=== PATIENT | female | born 1970 | race Caucasian/White ===

== ENCOUNTER 2021-07-08 10:04 | Emergency (ER) | payer MEDICAID, SELFPAY ==
[2021-07-08 10:45] VITALS: BP 156/98; PULSE 103; RESP 14; TEMP 36.4; O2SAT 98
--- NOTE | 2021-07-08 10:48 | ECG_ITS ---
Measurements Intervals [place] Rate: 89 P: 66 MI: 146 QRS: 72 QRSD: 90 T: 38 QT: 357 QTc: 437 Interpretive Statements SINUS RHYTHM MINIMAL Q WAVES- INFERIOR LEADS BORDERLINE ECG Electronically Signed On 07-08-2021 11:28:41 MOLYBDENUM STEAMER OPERATOR by Maverick Mata D.O.
--- NOTE | 2021-07-08 11:26 | ED.GENADULT ---
HPI - General Adult General Chief complaint: Neuro Symptoms/Deficit Stated complaint: wants an xray of head. tingling Time Seen by Provider: 07/08/21 10:55 History of Present Illness HPI narrative: 50-year-old female presents the emergency department for evaluation of a shocking sensation that travels from the top of her scalp. Patient states approximately 3 days ago she felt a sore spot on the top of her scalp. Patient states since that time she has felt that there is a live current that passes from the top of her scalp down her arms. Patient denies any associated numbness or weakness. Patient denies any medication changes. Patient denies any falls or injuries. Related Data Allergies Allergy/AdvReac Type Severity Reaction Status Date / Time No Known Allergies Allergy Verified 07/08/21 10:49 Review of Systems Review of Systems: CONSTITUTIONAL: Denies fever, chills, or sweats. EYES: Denies visual changes, redness, or discharge. ENT: Denies rhinorrhea, congestion, sore throat, or otalgia. CARDIOVASCULAR: Denies chest pain, palpitations, or edema. RESPIRATORY: Denies cough or dyspnea. GASTROINTESTINAL: Denies abdominal pain, nausea, vomiting, or diarrhea. GENITOURINARY: Denies dysuria or hematuria. SKIN: Denies rash or itching. MUSCULOSKELETAL: Denies back pain, joint pain, or myalgia. NEUROLOGIC: Denies headache, numbness, or weakness. Patient does report feeling a live current traveling through her body PSYCHIATRIC: Denies anxiety or depression. [facility] Family History Family History (Updated 02/27/16 @ 23:19 by DOCTOR UNKNOWN) Grandparent Family history of malignant neoplasm of breast Father Family history of coronary artery disease Social History Social History Smoking status: Heavy tobacco smoker Second hand tobacco smoke exposure: No Alcohol intake: never Exam Narrative: APPEARANCE: Well appearing, no pain in distress, well-nourished. Head normocephalic atraumtaic. EYES: PERRLA/EOMI, conjunctivae very clear. NOSE: Normal no drainage EARS:TMS clear Virgie Lara, with good light reflex. THROAT: Pharynx clear, no exudate. NECK: Supple. No adenopathy, no masses. RESPIRATORY: Airway patent, respirations nonlabored. Clear to auscultation bilaterally, no rales, rhonchi, wheezing. CARDIOVASCULAR: Regular rate and rhythm without murmurs rubs or gallops. ABDOMINAL: Soft, nontender, nondistended, no hepatosplenomegally MUSCULOSKELETAl: Moves all extremities. Strenght/ROM intact, No edema, No calf tenderness. NEURO: Alert. Cranial nerves II through XII intact. Good gait. Good coordination. Patient has no tremor, normal sensation and normal reflexes. SKIN: Warm, dry. Normal Color. No acute abnormality of the scalp is noted. PSYCHIATRIC: Normal affect/mood, normal interaction with parents. Course Course Emergency Course: Patient presented to the emergency department requesting an x-ray of her head. Patient is neurovascularly intact with a negative FAST exam. No concern for acute stroke. No palpable abnormality of the scalp or skull is noted. I explained that I did not feel that imaging would be worth the risk of the radiation at this time. Informed her that I would start with labs and we would proceed from there. All questions and concerns were addressed at this time. Patient eloped from the emergency department prior to completing her medical work-up. Vital Signs Vital signs: Vital Signs Temperature 97.5 F L 07/08/21 10:45 Pulse Rate 103 H 07/08/21 10:45 Respiratory Rate 14 07/08/21 10:45 Blood Pressure 156/98 H 07/08/21 10:45 Pulse Oximetry 98 07/08/21 10:45 Temperature 97.5 F L 07/08/21 10:45 Pulse Rate 103 H 07/08/21 10:45 Respiratory Rate 14 07/08/21 10:45 Blood Pressure 156/98 H 07/08/21 10:45 Pulse Oximetry 98 07/08/21 10:45 Medical Decision Making Vital Signs Vital Signs: Vital Signs Temperature 97.5 F L 07/08/21 10:45 Pulse Rate 103 H 07/08
[2021-07-08 11:41] LABS: Basophils Absolute Auto 0.1 K/mm3 (0.0-0.1); Basophils Percent Auto 0.6 % (0.2-1.2); Eosinophils Percent Auto 0.3 % (0-4.4); Hematocrit 38.7 % (37.0-47.0); Hemoglobin 13.5 g/dL (12.0-15.0); Immature Granulocyte Absolute 0.03 K/mm3 (0.00-0.031); Immature Granulocyte Percent A 0.3 % (0-0.5); Lymphocytes Absolute Auto 2.71 K/mm3 (0.9-3.2); Mean Corpuscular HGB Conc 34.9 g/dl (32-36); Mean Corpuscular Hemoglobin 31.8 pg (26-34); Mean Corpuscular Volume 91.1 fl (80-100); Mean Platelet Volume 10.1 fl (7.4-10.4); Monocytes Absolute Auto 0.6 K/mm3 (0.1-0.6); Monocytes Percent Auto 5.5 % (2.6-8.5); Neutrophils Absolute Auto 6.6 K/mm3 (1.3-6.7); Neutrophils Percent Auto 66.3 % (45.5-73.1); Platelet Count Result 263 k/mm3 (150-375); Red Blood Count 4.25 M/mm3 (4.2-5.4); Red Cell Distribution Width 11.6 % (11.5-14.5)
[2021-07-08 11:51] LABS: Alanine Aminotransferase 28 U/L (4-35); Albumin Level 4.6 g/dL (3.5-5.1); Alkaline Phosphatase 62 U/L (38-126); Anion Gap 7 mmol/L (8-16); Aspartate Amino Transferase 27 U/L (14-36); Bilirubin,Total 0.4 mg/dL (0.2-1.3); Blood Urea Nitrogen 18 mg/dL (7-17); Calcium 9.5 mg/dL (8.4-10.2); Carbon Dioxide 26 mmol/L (22-30); Chloride 103 mmol/L (98-107); Estimated Glomerular Filt Rate > 60; Glucose 97 mg/dL (65-110); Potassium 3.6 mmol/L (3.4-5.0); Sodium 136 mmol/L (137-145)
[2021-07-08 11:53] LABS: INR 0.9; Prothrombin Time 11.8 Seconds (11.1-14.7)
[2021-07-08 11:54] LABS: Partial Thromboplastin Time 23.2 SECONDS (22.3-36.8)
[2021-07-08 12:22] LABS: Troponin I < 0.012 ng/mL (0.000-0.034)
== END 2021-07-09 02:29 | disposition left against medical advice (07) ==
PROVIDERS: Emergency Medicine; Emergency Provider Emergency Medicine; PCP Emergency Medicine
DX: L98.9 Disorder of the skin and subcutaneous tissue, unspecified (principal); R29.90 Unspecified symptoms and signs involving the nervous system; F17.200 Nicotine dependence, unspecified, uncomplicated
CPT/HCPCS: 36415; 80053; 83735; 84484; 85025; 85610; 85730; 93005; 99284

== ENCOUNTER 2021-08-22 07:43 | Emergency (ER) | payer MEDICAID, SELFPAY ==
[2021-08-22] VITALS (17 sets, daily range): BP systolic 148–152; BP diastolic 84–94; PULSE 78–103; RESP 14–31; O2SAT 94–99
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
--- NOTE | 2021-08-22 07:45 | ECG_ITS ---
Measurements Intervals [place] Rate: 89 P: 66 VA: 149 QRS: 66 QRSD: 88 T: 48 QT: 361 QTc: 441 Interpretive Statements SINUS RHYTHM POSSIBLE LEFT ATRIAL ENLARGEMENT MINIMAL Q WAVES- INFERIOR LEADS BASELINE ARTIFACT- I, II, AVR, V1 BORDERLINE ECG Electronically Signed On 08-22-2021 8:19:20 MACHINE ASSEMBLER SUPERVISOR by Maverick Mata D.O.
[2021-08-22 08:25] LABS: Basophils Percent Auto 0.4 % (0.2-1.2); Eosinophils Percent Auto 0.2 % (0-4.4); Hematocrit 40.6 % (37.0-47.0); Hemoglobin 13.8 g/dL (12.0-15.0); Immature Granulocyte Absolute 0.05 K/mm3 (0.00-0.031); Immature Granulocyte Percent A 0.5 % (0-0.5); Lymphocytes Absolute Auto 2.09 K/mm3 (0.9-3.2); Lymphocytes Percent Auto 19.5 % (18.3-44.2); Mean Corpuscular Volume 91.2 fl (80-100); Mean Platelet Volume 10.1 fl (7.4-10.4); Monocytes Absolute Auto 0.5 K/mm3 (0.1-0.6); Neutrophils Percent Auto 74.4 % (45.5-73.1); Platelet Count Result 291 k/mm3 (150-375); Red Blood Count 4.45 M/mm3 (4.2-5.4); Red Cell Distribution Width 12.5 % (11.5-14.5); White Blood Count 10.7 K/mm3 (4.5-10.0)
--- NOTE | 2021-08-22 08:28 | ED.SOB ---
HPI - SOB/Dyspnea General Chief Complaint: Shortness of Breath/Dyspnea Stated Complaint: SOB, abd pain Time Seen by Provider: 08/22/21 07:48 History of Present Illness HPI Narrative: Patient is a 50-year-old female who presents ER with epigastric pain. Reports last night she was sleeping and at 3 AM she woke up and she is having central chest pressure going up towards her neck. It then moved down and settled in her epigastrium also going towards her neck. Associate with some mild shortness of breath. No exertional chest discomfort. No fevers or chills or sweats. Denies nausea/vomiting/belching. Denies burning pain going up into the back of her throat. No history of acid reflux. No history of MD. Patient does report CVA in the past. Patient is found no aggravating or alleviating factors. Related Data Home Medications Medication Instructions Recorded Confirmed No Home Medications 08/22/21 08/22/21 Allergies Allergy/AdvReac Type Severity Reaction Status Date / Time No Known Allergies Allergy Verified 07/08/21 10:49 Review of Systems Review of Systems: All systems reviewed & are unremarkable except as noted in HPI and below Constitutional: Constitutional: Denies chills, Denies fever(s) and Denies weakness ENT: Denies nasal congestion and Denies sore throat Cardiovascular: Cardiovascular: Reports chest pain and Reports radiating jaw, neck or arm pain Respiratory: Respiratory: Denies chest congestion, Denies cough, Reports dyspnea and Denies wheezing Gastrointestinal: Gastrointestinal: Reports abdominal pain, Denies bloating, Denies diarrhea, Denies nausea and Denies vomiting Genitourinary: Genitourinary: Denies dysuria and Denies flank pain Neurologic: Denies focal weakness and Denies numbness [facility] Past Medical History Medical History (Updated 08/22/21 @ 18:40 by Zachary Russo MD) Subarachnoid hemorrhage Surgical History Surgical History (Updated 08/22/21 @ 08:32 by Zachary Russo MD) History of hysterectomy History of tonsillectomy Family History Family History (Updated 02/27/16 @ 23:19 by DOCTOR UNKNOWN) Grandparent Family history of malignant neoplasm of breast Father Family history of coronary artery disease Social History Social History Smoking status: Heavy tobacco smoker Second hand tobacco smoke exposure: No Alcohol intake: never Exam Narrative: GENERAL: Well-appearing, well-nourished, and in no acute distress. HEAD: Normocephalic, atraumatic. EYES: PERRL and EOMI. CHEST: Clear to auscultation. No respiratory distress. HEART: Regular rate and rhythm. Normal peripheral pulses. ABDOMEN: Soft, nontender, nondistended. EXTREMITIES: Normal range of motion. No edema. SKIN: Warm, dry, no rash. NEURO: Alert and oriented x3. PSYCH: Normal mood and affect. Course Course Emergency Course: Patient walked out of the ER before completing exam. Vital Signs Vital signs: Vital Signs Pulse Rate 87 08/22/21 07:42 Respiratory Rate 14 08/22/21 07:42 Pulse Oximetry 97 08/22/21 07:42 Pulse Rate 83 08/22/21 10:45 Respiratory Rate 19 08/22/21 10:45 Blood Pressure 152/94 H 08/22/21 08:37 Pulse Oximetry 97 08/22/21 10:30 MDM - SOB/Dyspnea Lab Data Result diagrams: 08/22/21 08:17 08/22/21 08:17 Labs: Lab Results 08/22/21 08/22/21 08/22/21 Range/Units 08:17 08:17 08:33 WBC 10.7 H (4.5-10.0) K/mm3 RBC 4.45 (4.2-5.4) M/mm3 Hgb 13.8 (12.0-15.0) g/dL Hct 40.6 (37.0-47.0) % MCV 91.2 (80-100) fl MCH 31.0 (26-34) pg MCHC 34.0 (32-36) g/dl RDW 12.5 (11.5-14.5) % Plt Count 291 (150-375) k/mm3 MPV 10.1 (7.4-10.4) fl Immature Gran % (Auto) 0.5 (0-0.5) % Neut % (Auto) 74.4 H (45.5-73.1) % Lymph % (Auto) 19.5 (18.3-44.2) % [place] % (Auto) 5.0 (2.6-8.5) % Eos % (Auto) 0.2 (0-4.4) % Baso % (Auto) 0.4 (0.2-1.2) % Lymph #
[2021-08-22 08:35] LABS: Alanine Aminotransferase 28 U/L (4-35); Albumin Level 4.2 g/dL (3.5-5.1); Alkaline Phosphatase 105 U/L (38-126); Anion Gap 8 mmol/L (8-16); Aspartate Amino Transferase 25 U/L (14-36); Bilirubin,Total 0.3 mg/dL (0.2-1.3); Blood Urea Nitrogen 9 mg/dL (7-17); Calcium 9.3 mg/dL (8.4-10.2); Carbon Dioxide 25 mmol/L (22-30); Chloride 109 mmol/L (98-107); Estimated CRCL calculation 111 ml/min; Estimated Glomerular Filt Rate > 60; Glucose 111 mg/dL (65-110); Lipase 204 U/L (23-300); Sodium 142 mmol/L (137-145)
[2021-08-22] MEDS: MORPHINE SULFATE (*CRX) 4 MG/ML INJ IV PUSH (08:39)
[2021-08-22 08:47] LABS: Troponin I < 0.012 ng/mL (0.000-0.034)
[2021-08-22 08:51] LABS: Add Urine Microscopic? YES; Appearance Urine Clear (Clear); Bilirubin Urine Negative (Negative); Blood Urine Negative (Negative); Color Urine Yellow (Yellow); Glucose Urine UA Negative (Negative); Ketones Urine Negative (Negative); Leukocyte Esterase Ur Negative LEU/UL (Negative); Mucus Urine Rare /lpf; Nitrate Urine Negative (Negative); Protein Urine Negative (Negative); RBC Urine 0-2 /hpf (0-2); Specific Grav Ur 1.016 (1.001-1.035); Squamous Epithelial Cell Urine Moderate /hpf (Few); Urobilinogen Urine Negative mg/dL (<2.0); WBC Urine 0-3 /hpf
--- NOTE | 2021-08-22 12:00 | PC.NURSE ---
RN into assess pt. pt. gown on bed, monitor removed, and pt. not in room. computer applications developer and ERP made aware.
--- NOTE | 2021-08-22 12:27 | PC.NURSE ---
contacted [place] [facility] in regards to pt. elopement. informed pt. has IV intact and left before being discharged. informed pt. resides at [facility] in [place]. states the can do a wellness check.
--- NOTE | 2021-08-22 12:29 | PC.NURSE ---
Attempted to call pt. at [phone]. no answer.
== END 2021-08-22 11:40 | disposition left against medical advice (07) ==
PROVIDERS: Emergency Provider Emergency Medicine; PCP Emergency Medicine
DX: R07.9 Chest pain, unspecified (principal); F17.200 Nicotine dependence, unspecified, uncomplicated; R94.31 Abnormal electrocardiogram [ECG] [EKG]
CPT/HCPCS: 36415; 71046; 80053; 81001; 83690; 84484; 85025; 93005; 96374; 99284; J2270

== ENCOUNTER 2022-12-15 12:50 | Outpatient (CLI) | payer BC, SELFPAY ==
--- NOTE | ~2022-12-15 | US_ITS ---
EXAMINATION: US pelvic complete w TV DATE: 12/15/2022 13:46 INDICATION: Ovarian cyst. Comparison:11/25/2014 TECHNIQUE: Multiple transabdominal and endovaginal sonographic images of the pelvis performed. FINDINGS: The uterus is surgically absent. The ovaries are not identified, possibly atrophic. There i s no free fluid in the pelvis. There are no abnormal masses seen on either side. IMPRESSION: 1. Unremarkable pelvic ultrasound. Reviewed, dictated and finalized at location B.
== END 2022-12-15 12:51 | disposition home or self-care (01) ==
LOC: ANHIMG 12:56
PROVIDERS: PCP Emergency Medicine; Visit Provider Emergency Medicine
DX: N83.209 Unspecified ovarian cyst, unspecified side (principal)
CPT/HCPCS: 76830; 76856

== ENCOUNTER 2025-01-20 10:52 | Emergency (ER) | payer BC, SELFPAY ==
[2025-01-20] VITALS (15 sets, daily range): BP systolic 122–149; BP diastolic 83–105; PULSE 64–74; RESP 12–21; TEMP 36.7; O2SAT 98–100
--- NOTE | ~2025-01-20 | CT_ITS ---
Non-contrast Head CT History: Confusion Technique: Axial non-contrast imaging of the brain was performed. Dose reduction technique was used on this scan by utilizing automated exposure control and iterative reconstruction technique. The dose -length product (DLP) was 605.33 mGy-cm. Findings: There is no evidence of intracranial hemorrhage, mass lesion, or acute infarct. Brain par enchyma appears normal. The ventricles and subarachnoid spaces are normal in size. The calvarium ap pears normal. The visualized paranasal sinuses and mastoid air cells are clear. Impression: No significant abnormality seen. Reviewed, dictated and finalized at location . Impression: No significant abnormality seen.
--- NOTE | ~2025-01-20 | XR_ITS ---
Portable chest x-ray Comparison: 08/22/2021 Clinical History: Chest pain Findings: Lungs are clear, without focal consolidation or pleural effusion. Cardiomediastinal silho uette is stable. Bones and soft tissues are unremarkable. Impression: Normal chest. Reviewed, dictated and finalized at [facility]. Impression: Normal chest.
--- NOTE | 2025-01-20 11:09 | ECG_ITS ---
Test Date: 2025-01-20 11:28:32 Measurements Intervals [place] Rate: 72 P: 53 VA: 150 QRS: 68 QRSD: 93 T: 38 QT: 399 QTc: 439 Interpretive Statements SINUS RHYTHM NORMAL ECG No previous ECG available for comparison Electronically Signed On 01-20-2025 12:35:15 CDT by Maverick Mata D.O.
--- NOTE | 2025-01-20 11:13 | ED.GENADULT ---
HPI - General Adult General Chief complaint: Unspecified Stated complaint: weight loss, exhaustion Time Seen by Provider: 01/20/25 10:58 History of Present Illness HPI narrative: This is a 54-year-old female presenting with exhaustion. Patient is tearful during the interview. Patient states that earlier this year her daughter from an overdose. Then she had to take care of mother was suffering after a long mccoy with cancer. She said that she in hospice and that it was a terrible . Since then Shandra has been unable to sleep, she feels exhausted, she is tearful throughout most of the day, she says that her hair is falling out, she has chest pain, she has difficulty breathing she has abdominal pain she has diarrhea. Patient is convinced that she is dying inside. She thinks that there is a physical issue with her organs. She denies suicidal ideation or homicidal ideation. She has not spoken to anyone about her grief. Related Data Home Medications ?Medication ?Instructions ?Recorded ?Confirmed ?Last Taken ?Type No Home Medications 08/22/21 08/22/21 Unknown History Allergies Allergy/AdvReac Type Severity Reaction Status Date / Time No Known Allergies Allergy Verified 07/08/21 10:49 [facility] Past Medical History Medical History (Updated 01/20/25 @ 13:18 by Stan Ernandez MD) Subarachnoid hemorrhage Surgical History Surgical History (Updated 08/22/21 @ 08:32 by Zachary Russo MD) History of tonsillectomy History of hysterectomy Family History Family History (Updated 02/27/16 @ 23:19 by DOCTOR UNKNOWN) Grandparent Family history of malignant neoplasm of breast Father Family history of coronary artery disease Social History Social History Smoking status: Heavy tobacco smoker Second hand tobacco smoke exposure: No Alcohol intake: never Exam Narrative: APPEARANCE: Patient is tearful and crying, she repeats herself repeatedly Head: atraumatic. EYES: EOMI, NOSE: Atraumatic NECK: Trachea midline RESPIRATORY: No increased rate of breathing clear to auscultation CARDIOVASCULAR: RRR, no peripheral edema ABDOMINAL: Non-distended nontender MUSCULOSKELETAl: No obvious deformities NEURO: Alert. Moving 4/4 extremities SKIN:: Warm, dry. Normal color PSYCHIATRIC: Tearful crying anxious appearing Course Vital Signs Vital signs: Vital Signs Temperature 98.1 F 01/20/25 11:02 Pulse Rate 74 01/20/25 11:02 Respiratory Rate 20 01/20/25 11:02 Blood Pressure 122/105 H 01/20/25 11:02 Pulse Oximetry 100 01/20/25 11:02 Oxygen Delivery Room Air 01/20/25 11:02 Temperature 98.1 F 01/20/25 11:02 Pulse Rate 74 01/20/25 11:02 Respiratory Rate 18 01/20/25 12:09 Blood Pressure 122/105 H 01/20/25 11:02 Pulse Oximetry 100 01/20/25 12:09 Oxygen Delivery Room Air 01/20/25 11:02 Medical Decision Making MDM Narrative Medical decision making narrative: -Course: 54-year-old female presenting weight loss and exhaustion. She has a bragg positive review of systems. All of her symptoms are likely due to a severe grief reaction from the significant stressors she has undergone due to losses in her family. Her workup was unremarkable. She is not suicidal or homicidal. Patient is already plugged into [facility] as well as some the other psychiatric facilities for help with her grief previous psychiatric illness. She can follow-up with them for further management. Patient discharged with return precautions. -DDX includes but is not limited to: Grief reaction, adjustment disorder, depression, anxiety Vital Signs Vital Signs: Vital Signs Temperature 98.1 F 01/20/25 11:02 Pulse Rate 74 01/20/25 11:02 Respiratory Rate 20 01/20/25 11:02 Blood Pressure 122/105 H 01/20/25 11:02 Pulse Oximetry 100 01/20/25 11:02 Oxygen Delivery Room Air 01/20/25 11:02 Temperature 98.1 F 01/20/25 11:02 Pulse Rate 74 01/20/25 11:02 Respiratory Rate 18 01/20/25 12:09 Blood Pressure 122/105 H 01/20/25 11:02 Pulse Oximetry 100 01/20/25 12:09 Oxygen Delivery Room Air 01/20/25 11:02 Lab Data 01/20/25 11:24 01/20/25 11:24 Labs: Lab Results 01/20/25 01/20/25 01/20/25 Range/Units 11:24 11:34 11:39 WBC 7.1 (4.5-10.0) K/mm3 RBC 4.45 (4.2-5.4) M/mm3 Hgb 13.4 (12.0-15.0) g/dL Hct 38.5 (37.0-47.0) % MCV 86.5 (80-100) fl MCH 30.1 (26-34) pg MCHC 34.8 (32-36) g/dl RDW 12.6 (11.5-14.5) % Plt Count 286 (150-375) k/mm3 MPV 10.3 (7.4-10.4) fl Immature Gran % (Auto) 0.4 (0-0.5) % Neut % (Auto) 67.0 (45.5-73.1) % Lymph % (Auto) 26.5 (18.3-44.2) % [place] % (Auto) 5.2 (2.6-8.5) % Eos % (Auto) 0.3 (0-4.4) % Baso % (Auto) 0.6 (0.2-1.2) % Lymph # (Auto) 1.89 (0.9-3.2) K/mm3 [place] # (Auto) 0.4 (0.1-0.6) K/mm3 Eos # (Auto) 0.0 (0-0.3) K/mm3 Baso # (Auto) 0.0 (0.0-0.1) K/mm3 Abs Immat Gran (auto) 0.03 (0.00-0.031) K/mm3 Absolute Neuts (auto) 4.8 (1.3-6.7) K/mm3 Absolute Nucleated RBC 0.000 (0.0-0.012) K/mm3 Nucleated RBC % 0.0 (0.0-0.2) % PT 12.7 (11.1-14.7) Seconds INR 0.9 APTT 25.8 (22.3-36.8) Seconds Sodium 137 (137-145) mmol/L Potassium 4.0 (3.4-5.0) mmol/L Chloride 103 (98-107) mmol/L Carbon Dioxide 23 (22-30) mmol/L Anion Gap 11 (4-12) mmol/L BUN 7 (7-17) mg/dL Creatinine 0.65 L (0.7-1.0) mg/dL Estim Creat Clear Calc 80 ml/min Estimated GFR > 60 (59 - ) Glucose 98 (65-110) mg/dL Calcium 9.5 (8.4-10.2) mg/dL Magnesium 1.7 (1.6-2.3) mg/dL Total Bilirubin 0.8 (0.2-1.3) mg/dL AST 25 (14-36) U/L ALT 17 (6-35) U/L Alkaline Phosphatase 56 (38-126) U/L Troponin I < 0.012 (0.000-0.034) ng/mL Total Protein 8.0 (6.3-8.2) g/dL Albumin 4.7 (3.5-5.1) g/dL Lipase 164 (23-300) U/L TSH (Reflex) 1.580 (0.465-4.68) uIU/mL Urine Color Yellow (Yellow) Urine Appearance Clear (Clear) Urine pH 6.0 (5.0-9.0) Ur Specific [place] 1.003 (1.001-1.035) Urine Protein Negative (Negative) mg/dL Urine Glucose (UA) Negative (Negative) mg/dL Urine Ketones Negative (Negative) mg/dL Ur Blood (Man) Negative (Negative) Urine Nitrate Negative (Negative) Urine Bilirubin Negative (Negative) Urine Urobilinogen 0.2 (<2.0) mg/dL Leukocyte Esterase Rfl Negative (Negative) TARAS/UL POC Urine HCG, Qual Negative (Negative) Urine Opiates Screen Negative (Negative) Urine Methadone Screen Negative (Negative) Ur Barbiturates Screen Negative (Negative) Ur Phencyclidine Scrn Negative (Negative) Ur Amphetamine Screen Negative (Negative) U Benzodiazepines Scrn Negative (Negative) Urine Cocaine Screen Negative (Negative) U Cannabinoids Screen Negative (Negative) Ethyl Alcohol < 10 (<10) mg/dL Influenza A (RT-PCR) Negative (Negative) Influenza B (RT-PCR) Negative (Negative) RSV (RT-PCR) Negative (Negative) SARS-CoV-2 RNA (RT-PCR) Negative (Negative) Discharge Plan Discharge Clinical Impression: Grief reaction, Depression Patient Disposition: Home Condition: Stable Instructions: Antibiotic Form, Grief and Loss (ED) Additional Instructions: You were seen emergency department for exhaustion. This is likely due to the significant emotional stressors you have undergone over the last year. Please follow-up with your psychiatrist for further management. If you develop thoughts of harming herself or others please return to the ED for re-evaluation Patient Language: Liberian Prescriptions: No Action No Home Medications Follow-up/Referrals: Angela,Isaiah Fang MD [Primary Care Provider] -
[2025-01-20 11:30] LABS: Basophils Percent Auto 0.6 % (0.2-1.2); Eosinophils Percent Auto 0.3 % (0-4.4); Hematocrit 38.5 % (37.0-47.0); Hemoglobin 13.4 g/dL (12.0-15.0); Immature Granulocyte Absolute 0.03 K/mm3 (0.00-0.031); Immature Granulocyte Percent A 0.4 % (0-0.5); Lymphocytes Absolute Auto 1.89 K/mm3 (0.9-3.2); Lymphocytes Percent Auto 26.5 % (18.3-44.2); Mean Corpuscular HGB Conc 34.8 g/dl (32-36); Mean Corpuscular Hemoglobin 30.1 pg (26-34); Mean Corpuscular Volume 86.5 fl (80-100); Mean Platelet Volume 10.3 fl (7.4-10.4); Monocytes Absolute Auto 0.4 K/mm3 (0.1-0.6); Monocytes Percent Auto 5.2 % (2.6-8.5); Neutrophils Absolute Auto 4.8 K/mm3 (1.3-6.7); Platelet Count Result 286 k/mm3 (150-375); Red Blood Count 4.45 M/mm3 (4.2-5.4); Red Cell Distribution Width 12.6 % (11.5-14.5); White Blood Count 7.1 K/mm3 (4.5-10.0)
[2025-01-20 11:39] LABS: Ethanol < 10 mg/dL (<10)
[2025-01-20 11:40] LABS: Alanine Aminotransferase 17 U/L (6-35); Albumin Level 4.7 g/dL (3.5-5.1); Alkaline Phosphatase 56 U/L (38-126); Anion Gap 11 mmol/L (4-12); Aspartate Amino Transferase 25 U/L (14-36); Bilirubin,Total 0.8 mg/dL (0.2-1.3); Blood Urea Nitrogen 7 mg/dL (7-17); Calcium 9.5 mg/dL (8.4-10.2); Carbon Dioxide 23 mmol/L (22-30); Chloride 103 mmol/L (98-107); Estimated CRCL calculation 80 ml/min; Estimated Glomerular Filt Rate > 60; Glucose 98 mg/dL (65-110); Lipase 164 U/L (23-300); Magnesium 1.7 mg/dL (1.6-2.3); Sodium 137 mmol/L (137-145)
[2025-01-20 11:41] LABS: INR 0.9; Prothrombin Time 12.7 Seconds (11.1-14.7)
[2025-01-20 11:41] LABS: BEDSIDEPREGUCG Negative (Negative)
[2025-01-20] MEDS: SODIUM CHLORIDE 0.9% IV 1,000 ML 999 ML IV CONT (11:41)
[2025-01-20 11:42] LABS: Partial Thromboplastin Time 25.8 Seconds (22.3-36.8)
[2025-01-20 11:44] LABS: Add Urine Microscopic? NO; Appearance Urine Clear (Clear); Bilirubin Urine Negative (Negative); Blood Urine Negative (Negative); Color Urine Yellow (Yellow); Glucose Urine UA Negative (Negative); Ketones Urine Negative (Negative); Leukocyte Esterase Ur Negative LEU/UL (Negative); Nitrate Urine Negative (Negative); Protein Urine Negative (Negative); Specific Grav Ur 1.003 (1.001-1.035); Urobilinogen Urine 0.2 mg/dL (<2.0)
[2025-01-20 11:52] LABS: Troponin I < 0.012 ng/mL (0.000-0.034)
[2025-01-20 11:59] LABS: Amphetamine Screen Urine Negative (Negative); Barbiturate Screen Urine Negative (Negative); Benzodiazepines Screen Urine Negative (Negative); Cannabinoid Screen Urine Negative (Negative); Cocaine Screen Urine Negative (Negative); Methadone Screen Urine Negative (Negative); Opiate Screen Urine Negative (Negative); Phencyclidine Screen Urine Negative (Negative)
[2025-01-20 12:06] LABS: Influenza A QL RT-PCR Negative (Negative); Influenza B QL RT-PCR Negative (Negative); RSV RNA, RT-PCR Negative (Negative); SARS-CoV-2 RNA PCR Negative (Negative)
== END 2025-01-20 13:39 | disposition home or self-care (01) ==
PROVIDERS: Emergency Provider Emergency Medicine; PCP Emergency Medicine
DX: F43.21 Adjustment disorder with depressed mood (principal); Z20.822 Contact with and (suspected) exposure to COVID-19
CPT/HCPCS: 36415; 70450; 71045; 80053; 80307; 81003; 81025; 82077; 83690; 83735; 84443; 84484; 85025; 85610; 85730; 87637; 93005; 96360; 99284; J7030